=== PATIENT | female | born 1970 | race Caucasian/White ===

== ENCOUNTER → 2016-11-08 | Day surgery (SDC) | payer OTHER ==
[2016-09-07 11:44] VITALS: BMI 35.0
[2016-09-30 11:45] VITALS: BMI 35.0
[2016-10-24 10:38] VITALS: BMI 36.0
[2016-10-31 15:23] VITALS: Ht 154.9 cm; Wt 85.9 kg
[~2016-11-08] VITALS: Ht 154.9 cm; Wt 85.9 kg
[~2016-11-08] MED LIST: ALBUAER2 INH; BUPR-83 PO; BUPR300T43 PO; CINN1CAP2 PO; CYCLOPENTOLATE HCL 1% OP SOLN PER DROP CHARGE OPR SCH; DOXE50CA3 PO; FERR27TA5 PO; GATIFLOXACIN OP SOLN PER DROP CHARGE OPR SCH; HYDR-3126 PO; HYDR50CA2 PO; KETOROLAC 0.5% OP SOLN PER DROP CHARGE OPR SCH; LACTATED RINGER'S 1000ML 500 ML IV SCH; LORA-741 PO; LXP10 PO; MELA1TAB5 PO; MULT-307 PO; OXCA150T2 PO; OXCA300T2 PO; OXCA300T4 PO; PHENYLEPHRINE HCL 2.5% OP SOLN PER DROP CHARGE OPR SCH; PRED1SUS3 OPL; PROPARACAINE 0.5% OP SOLN PER DROP CHARGE OPR SCH; SNQ/25 PO; SULF800T23 PO; TROPICAMIDE 1% OP SOLN PER DROP CHARGE OPR SCH; VNTHFA/IN INH; WLLSR150 PO; ZOLP5TAB PO; ZOLP5TAB6 PO; [UNRECOGNIZED DRUG - OTHER] PO
== END | disposition home or self-care (01) ==
LOC: EDSTATUS 09:30 → C.PAT 10:47
PROVIDERS: ATTEND Ophthalmology
DX: H26.9 Unspecified cataract (principal)

== ENCOUNTER → 2016-11-29 | Day surgery (SDC) | payer OTHER ==
[2016-11-28 15:42] VITALS: Ht 156.2 cm; Wt 90.9 kg
[~2016-11-29] VITALS: Ht 156.2 cm; Wt 90.9 kg
[~2016-11-29] MED LIST changes: +500ML BSS 0.3ML EPI 1:1000PF IRRIG ONE; +ACETAMINOPHEN 325 MG TAB PO PRN; +AMVISC PLUS 0.8ML SYRINGE INT OCU ONE; +BSS FLUSH ONE; -CYCLOPENTOLATE HCL 1% OP SOLN PER DROP CHARGE OPR SCH; +EpINEphrine INJ 1MG/ML AMP 1 MG/ML AMP ONE; -GATIFLOXACIN OP SOLN PER DROP CHARGE OPR SCH; -KETOROLAC 0.5% OP SOLN PER DROP CHARGE OPR SCH; +LIDOCAINE 3.5% OPH GEL PER APPLICATION CHARGE ONE; +LIDOCAINE HCL 1% MPF 2 ML VIAL ONE; +MIDAZOLAM HCL 1 MG/ML 2ML VIAL ONE; +MIX: 4ML BSS 1ML EPI 1:1000 PF INSTIL ONE; +OCUCOAT 1 ML SOLN IO ONE; -PHENYLEPHRINE HCL 2.5% OP SOLN PER DROP CHARGE OPR SCH; +POVIDONE-IODINE OP SOLN 30 ML BTL ONE; +TOBRAMYCIN/DEXAMETHASONE OPH OINT PER APPLN CHARGE ONE; -TROPICAMIDE 1% OP SOLN PER DROP CHARGE OPR SCH
[2016-11-29] MEDS: PHENYLEPHRINE HCL 2.5% OP SOLN PER DROP CHARGE OPR SCH ×2 (07:45→07:55)
[2016-11-29] MEDS: TROPICAMIDE 1% OP SOLN PER DROP CHARGE OPR SCH ×2 (07:47→07:56)
[2016-11-29] MEDS: CYCLOPENTOLATE HCL 1% OP SOLN PER DROP CHARGE OPR SCH ×2 (07:51→07:57)
[2016-11-29] MEDS: KETOROLAC 0.5% OP SOLN PER DROP CHARGE OPR SCH ×2 (07:52→07:58)
--- NOTE | 2016-11-29 07:52 | History & Physical Bridge - SC ---
H&P Re-Evaluation Bridge Note: I have examined the patient, reviewed the History & Physical and in the interval since the performance of the History & Physical I have noted the following changes of clinical significance: Diagnosis: Right Cataract Procedure: Right Cataract Removal with Lens Implant No changes noted
[2016-11-29] MEDS: GATIFLOXACIN OP SOLN PER DROP CHARGE OPR SCH ×2 (07:53→08:03)
--- NOTE | 2016-11-29 08:37 | Discharge Instructions-SurgCtr ---
Discharge Instructions Visit Reason for Visit: Cataract Right Eye Discharge Discharge Diagnosis / Problem: cataract Discharge Goals Goal(s): Improve function Activity Recommendations Activity Limitations: per Instructions/Follow-up section Anesthesia . Post Anesthesia Instructions: If you have had General Anesthesia or IV Sedation: * Do not drive today. * Resume driving when surgeon permits. * Do not make important decisions or sign legal documents today. * Call surgeon for: 1. Temperature elevations greater than 101 degrees F. 2. Uncontrollable pain. 3. Excessive bleeding. 4. Persistent nausea and vomiting. 5. Medication intolerance (nausea, vomiting or rash). * For nausea and vomiting use only clear liquids such as: tea, soda, bouillon until nausea subsides, then gradually increase diet as tolerated. * If you have any concerns or questions, call your surgeon's office. If physician is unavailable and it is an emergency, call 911 or go to the nearest emergency room. . Instructions / Follow-Up Instructions / Follow-Up ACTIVITY RECOMMENDATIONS: * No strenuous lifting, jogging or running for 4 days * No swimming or yard work for 1 week. * Limited bending is permitted, such as putting on shoes. RETURN TO SCHOOL/WORK: No work until seen by physician in office. MEDICATIONS: Resume previous medications unless instructed otherwise by your surgeon. This includes eye drops for glaucoma. Zymaxid/Gatifloxacin (peters cap) - one drop every 2 hours until bedtime Nevanac/Ilevro/Prolensa/Ketorolac (davis cap) - one drop every 4 hours until bedtime Prednisolone (white/pink cap, SHAKE WELL) - one drop every 2 hours until bedtime Starting tomorrow - all 3 drops every 4 hours until seen in the office Optive drops - as needed for discomfort SPECIAL CARE INSTRUCTIONS: * Wear eyeshield when sleeping, for four nights. * You may wear your own glasses or sunglasses while awake. * You may read or watch TV * You may shower and wash your face, but be gentle around the eye and pat dry. * Blurry vision and mild irritation are normal. * Call office if pain is more severe or vision becomes dark at . FOLLOW UP VISIT: Follow-up with Dr Downey tomorrow. Diet Recommendations Home Diet: resume previous diet Procedures Procedures Performed: Right Eye Cataract Phacoemulsification With Intraocular Lens Implant Pending Studies Studies pending at discharge: no Medical Emergencies . Who to Call and When: Medical Emergencies: If at any time you feel your situation is an emergency, please call 911 immediately. . Non-Emergent Contact Non-Emergency issues call your: Collector . . "Provider Documentation" section prepared by Venkata Downey.
[2016-11-29 08:38] VITALS: TEMP 36.8
--- NOTE | 2016-11-29 08:38 | [facility] Operative Report ---
Operative Report 1. PREOPERATIVE DIAGNOSIS: Cataract of the right eye. 2. POSTOPERATIVE DIAGNOSIS: Same. 3. PROCEDURE: Phacoemulsification with intraocular lens implantation of the right eye. SURGEON: Dr. Venkata Downey. ANESTHESIA: Topical Lidocaine gel, 1% Non- Preserved intracameral Lidocaine, and monitored intravenous sedation. INDICATIONS FOR THE PROCEDURE: The patient is a 46 - year-old female with a history of cataract of the right eye causing significant visual impairment. The details of the proposed procedure were explained to the patient who asked appropriate questions and following discussion of all risks, benefits and alternatives agreed to have the procedure done. 4. OPERATION AND FINDINGS: DESCRIPTION OF PROCEDURE: After informed consent was obtained, the patient was brought to the Operating Room at the [facility]. The patient was placed in a supine position and then the right eye was prepped and draped in the usual sterile fashion for intraocular surgery. A drop of topical Lidocaine gel was placed in the operative eye. A wire lid speculum was then placed in the fornices. A corneal paracentesis was then created temporally. The Non-Preserved Lidocaine was then instilled into the anterior chamber. The anterior chamber was then pressurized with viscoelastic. A 2.0 mm clear corneal incision was then created temporally. A cystotome was inserted into the anterior chamber and used to create a tear in the anterior lens capsule. This capsular tear was then used to create a small flap and the flap was dragged in a counterclockwise direction in order to create a continuous curvilinear capsulorrhexis. Hydrodissection was accomplished with balanced salt solution. Phacoemulsification of the lens nucleus was then performed in a standard [id number] technique. The phaco time was 8 seconds with an average power of 4 %. The remaining cortical material was removed using irrigation aspiration. The capsular bag was then filled with viscoelastic. A Bausch & Lomb MI60L +21.0 diopters lens was then loaded into the injector and injected into the capsular bag. The remaining viscoelastic was removed with the irrigation aspiration handpiece. The wound was hydrated and then checked and found to be watertight. The intraocular pressure was checked and found to be adequate. The wire lid speculum was removed and the patient's face was cleaned and dried. TobraDex ointment was placed in the inferior fornix. The patient was discharged to the Recovery Room having tolerated the procedure well. There were no complications. The patient will be seen tomorrow in the office for follow-up. I attest to the content of the Intraoperative Record and any orders documented therein. Any exceptions are noted below.
--- NOTE | 2016-11-29 08:57 | Anesthesia Progress Nt - [facility] ---
Anesthesia Post Op Note Date & Time Nov 29, 2016 at 08:57 Vital Signs Pain Intensity: 0 Vital Signs Past 12 Hours Date Time Temp Pulse Resp B/P Pulse Ox O2 Delivery O2 Flow Rate FiO2 11/29/16 08:38 36.8 80 16 124/87 99 Room Air 11/29/16 07:33 37.0 80 16 154/106 98 Room Air Notes Mental Status: alert / awake / arousable, participated in evaluation Pt Amnestic to Procedure: No Nausea / Vomiting: adequately controlled Pain: adequately controlled Airway Patency, RR, SpO2: stable & adequate BP & HR: stable & adequate Hydration State: stable & adequate Anesthetic Complications: no major complications apparent Pt doing very well. Some recall as expected and explained.
[2016-11-29 09:01] VITALS: BP 123/85; PULSE 88; O2SAT 97
== END | disposition home or self-care (01) ==
LOC: X.SURG 07:13
PROVIDERS: ATTEND Ophthalmology
DX: H26.9 Unspecified cataract (principal); M25.559 Pain in unspecified hip; Z01.818 Encounter for other preprocedural examination; G89.29 Other chronic pain; M54.2 Cervicalgia

== ENCOUNTER → 2017-01-17 | Day surgery (SDC) | payer OTHER ==
[2016-09-30 11:49] VITALS: BMI 35.0
[2016-10-24 14:06] VITALS: BMI 36.0
[2016-12-19 14:11] VITALS: Ht 156.2 cm; Wt 90.9 kg
[~2017-01-17] VITALS: Ht 156.2 cm; Wt 90.9 kg
[~2017-01-17] MED LIST changes: +CYCLOPENTOLATE HCL 1% OP SOLN PER DROP CHARGE OPL SCH; +ETOD300C20 PO; +GATIFLOXACIN OP SOLN PER DROP CHARGE OPL SCH; +KETOROLAC 0.5% OP SOLN PER DROP CHARGE OPL SCH; +MECL1TAB42 PO; -MIX: 4ML BSS 1ML EPI 1:1000 PF INSTIL ONE; +PHENYLEPHRINE HCL 2.5% OP SOLN PER DROP CHARGE OPL SCH; -PRED1SUS3 OPL; +PROPARACAINE 0.5% OP SOLN PER DROP CHARGE OPL SCH; -PROPARACAINE 0.5% OP SOLN PER DROP CHARGE OPR SCH; +TROPICAMIDE 1% OP SOLN PER DROP CHARGE OPL SCH
[2017-01-17] MEDS: PHENYLEPHRINE HCL 2.5% OP SOLN PER DROP CHARGE OPL SCH ×2 (10:26→10:31)
[2017-01-17] MEDS: TROPICAMIDE 1% OP SOLN PER DROP CHARGE OPL SCH ×2 (10:27→10:32)
--- NOTE | 2017-01-17 10:27 | History & Physical Bridge - [place] ---
H&P Re-Evaluation Bridge Note: I have examined the patient, reviewed the History & Physical and in the interval since the performance of the History & Physical I have noted the following changes of clinical significance: No changes noted
[2017-01-17] MEDS: CYCLOPENTOLATE HCL 1% OP SOLN PER DROP CHARGE OPL SCH ×2 (10:28→10:33)
[2017-01-17] MEDS: KETOROLAC 0.5% OP SOLN PER DROP CHARGE OPL SCH ×2 (10:29→10:34)
[2017-01-17] MEDS: GATIFLOXACIN OP SOLN PER DROP CHARGE OPL SCH ×2 (10:30→10:40)
--- NOTE | 2017-01-17 10:44 | Discharge Instructions-SurgCtr ---
Discharge Instructions Date of Service Jan 17, 2017. Visit Reason for Visit: Cataract Left Eye Discharge Discharge Diagnosis / Problem: cataract Discharge Goals Goal(s): Improve function Activity Recommendations Activity Limitations: per Instructions/Follow-up section Anesthesia . Post Anesthesia Instructions: If you have had General Anesthesia or IV Sedation: * Do not drive today. * Resume driving when surgeon permits. * Do not make important decisions or sign legal documents today. * Call surgeon for: 1. Temperature elevations greater than 101 degrees F. 2. Uncontrollable pain. 3. Excessive bleeding. 4. Persistent nausea and vomiting. 5. Medication intolerance (nausea, vomiting or rash). * For nausea and vomiting use only clear liquids such as: tea, soda, bouillon until nausea subsides, then gradually increase diet as tolerated. * If you have any concerns or questions, call your surgeon's office. If physician is unavailable and it is an emergency, call 911 or go to the nearest emergency room. . Instructions / Follow-Up Instructions / Follow-Up ACTIVITY RECOMMENDATIONS: * No strenuous lifting, jogging or running for 4 days * No swimming or yard work for 1 week. * Limited bending is permitted, such as putting on shoes. RETURN TO SCHOOL/WORK: No work until seen by physician in office. MEDICATIONS: Resume previous medications unless instructed otherwise by your surgeon. This includes eye drops for glaucoma. Zymaxid/Gatifloxacin (peters cap) - one drop every 2 hours until bedtime Nevanac/Ilevro/Prolensa/Ketorolac (davis cap) - one drop every 4 hours until bedtime Prednisolone (white/pink cap, SHAKE WELL) - one drop every 2 hours until bedtime Starting tomorrow - all 3 drops every 4 hours until seen in the office Optive drops - as needed for discomfort SPECIAL CARE INSTRUCTIONS: * Wear eyeshield when sleeping, for four nights. * You may wear your own glasses or sunglasses while awake. * You may read or watch TV * You may shower and wash your face, but be gentle around the eye and pat dry. * Blurry vision and mild irritation are normal. * Call office if pain is more severe or vision becomes dark at . FOLLOW UP VISIT: Follow-up with Dr Downey tomorrow. Diet Recommendations Home Diet: resume previous diet Pending Studies Studies pending at discharge: no Medical Emergencies . Who to Call and When: Medical Emergencies: If at any time you feel your situation is an emergency, please call 911 immediately. . Non-Emergent Contact Non-Emergency issues call your: Health Spa Manager . . "Provider Documentation" section prepared by Venkata Downey.
--- NOTE | 2017-01-17 10:46 | [facility] Operative Report ---
Operative Report Date of Service Jan 17, 2017. Operative Report 1. PREOPERATIVE DIAGNOSIS: Cataract of the right eye. 2. POSTOPERATIVE DIAGNOSIS: Same. 3. PROCEDURE: Phacoemulsification with intraocular lens implantation of the right eye. SURGEON: Dr. Venkata Downey. ANESTHESIA: Topical Lidocaine gel, 1% Non- Preserved intracameral Lidocaine, and monitored intravenous sedation. INDICATIONS FOR THE PROCEDURE: The patient is a 46 - year-old female with a history of cataract of the right eye causing significant visual impairment. The details of the proposed procedure were explained to the patient who asked appropriate questions and following discussion of all risks, benefits and alternatives agreed to have the procedure done. Patient had a poorly dilating pupil and therefore plans were made preoperatively to stretch the pupil. 4. OPERATION AND FINDINGS: DESCRIPTION OF PROCEDURE: After informed consent was obtained, the patient was brought to the Operating Room at the [facility]. The patient was placed in a supine position and then the right eye was prepped and draped in the usual sterile fashion for intraocular surgery. A drop of topical Lidocaine gel was placed in the operative eye. A wire lid speculum was then placed in the fornices. A corneal paracentesis was then created temporally. The Non-Preserved Lidocaine was then instilled into the anterior chamber. The anterior chamber was then pressurized with viscoelastic. A 2.0 mm clear corneal incision was then created temporally. Kuglen hooks were used to stretch the pupil horizontally and vertically. A cystotome was inserted into the anterior chamber and used to create a tear in the anterior lens capsule. This capsular tear was then used to create a small flap and the flap was dragged in a counterclockwise direction in order to create a continuous curvilinear capsulorrhexis. Hydrodissection was accomplished with balanced salt solution. Phacoemulsification of the lens nucleus was then performed in a standard pdnvci-[id number]-smbaqpe technique. The phaco time was 29 seconds with an average power of 13 %. The remaining cortical material was removed using irrigation aspiration. The capsular bag was then filled with viscoelastic. A Bausch & Lomb MI60L +23.0 diopters lens was then loaded into the injector and injected into the capsular bag. The remaining viscoelastic was removed with the irrigation aspiration handpiece. The wound was hydrated and then checked and found to be watertight. The intraocular pressure was checked and found to be adequate. The wire lid speculum was removed and the patient's face was cleaned and dried. TobraDex ointment was placed in the inferior fornix. The patient was discharged to the Recovery Room having tolerated the procedure well. There were no complications. The patient will be seen tomorrow in the office for follow-up. I attest to the content of the Intraoperative Record and any orders documented therein. Any exceptions are noted below.
[2017-01-17 11:10] VITALS: TEMP 36.3
--- NOTE | 2017-01-17 11:25 | Anesthesia Progress Nt - [facility] ---
Anesthesia Post Op Note Date & Time Jan 17, 2017 at 11:25 Vital Signs Pain Intensity: 0 Vital Signs Past 12 Hours Date Time Temp Pulse Resp B/P Pulse Ox O2 Delivery O2 Flow Rate FiO2 01/17/17 11:10 36.3 84 16 123/85 97 Room Air 01/17/17 10:39 36.9 89 16 137/86 96 Room Air Notes Mental Status: alert / awake / arousable, participated in evaluation Pt Amnestic to Procedure: No Nausea / Vomiting: adequately controlled Pain: adequately controlled Airway Patency, RR, SpO2: stable & adequate BP & HR: stable & adequate Hydration State: stable & adequate Anesthetic Complications: no major complications apparent Pt doing well. Recall as expected.
[2017-01-17 11:30] VITALS: BP 114/78; PULSE 85; O2SAT 98
== END | disposition home or self-care (01) ==
LOC: X.SURG 10:21
PROVIDERS: ATTEND Ophthalmology
DX: H26.9 Unspecified cataract (principal)

== ENCOUNTER 2017-02-25 20:34 | Emergency (ER) | payer OTHER ==
[~2017-02-25] VITALS: Ht 154.9 cm; Wt 91.0 kg
[~2017-02-25 20:34] MED LIST changes: -500ML BSS 0.3ML EPI 1:1000PF IRRIG ONE; -ACETAMINOPHEN 325 MG TAB PO PRN; -AMVISC PLUS 0.8ML SYRINGE INT OCU ONE; -BSS FLUSH ONE; -CYCLOPENTOLATE HCL 1% OP SOLN PER DROP CHARGE OPL SCH; -ETOD300C20 PO; -EpINEphrine INJ 1MG/ML AMP 1 MG/ML AMP ONE; -GATIFLOXACIN OP SOLN PER DROP CHARGE OPL SCH; -HYDR50CA2 PO; -KETOROLAC 0.5% OP SOLN PER DROP CHARGE OPL SCH; -LACTATED RINGER'S 1000ML 500 ML IV SCH; -LIDOCAINE 3.5% OPH GEL PER APPLICATION CHARGE ONE; -LIDOCAINE HCL 1% MPF 2 ML VIAL ONE; -LORA-741 PO; -LXP10 PO; -MECL1TAB42 PO; -MELA1TAB5 PO; -MIDAZOLAM HCL 1 MG/ML 2ML VIAL ONE; -MULT-307 PO; -OCUCOAT 1 ML SOLN IO ONE; -OXCA300T2 PO; -OXCA300T4 PO; -PHENYLEPHRINE HCL 2.5% OP SOLN PER DROP CHARGE OPL SCH; -POVIDONE-IODINE OP SOLN 30 ML BTL ONE; -PROPARACAINE 0.5% OP SOLN PER DROP CHARGE OPL SCH; -SNQ/25 PO; -SULF800T23 PO; -TOBRAMYCIN/DEXAMETHASONE OPH OINT PER APPLN CHARGE ONE; -TROPICAMIDE 1% OP SOLN PER DROP CHARGE OPL SCH; -VNTHFA/IN INH; -WLLSR150 PO; -ZOLP5TAB6 PO
[2017-02-25 20:36] VITALS: TEMP 36.9; Ht 154.9 cm; Wt 91.0 kg
[2017-02-25 20:47] VITALS: O2SAT 100
[2017-02-25] MEDS ORDERED: LORAZEPAM 2 MG/ML 1 ML VIAL IV STA (20:49)
[2017-02-25] MEDS ORDERED: SODIUM CHLORIDE 0.9% 1000ML 1,000 ML IV STA (20:50)
--- NOTE | 2017-02-25 20:55 | EMERGENCY ROOM VISIT NOTE ---
History Report prepared by Ralf: Brian Davies Under the Supervision of: Dr. Bill Schmidt M.D. First contact with patient: 20:41 Chief Complaint: OTHER COMPLAINT Stated Complaint: UNABLE TO FEEL ANYTHING, DIFFICULTY BREATHING History of Present Illness The patient is a 46 year old female who presents to the Emergency Room with complaints of persistent difficulty breathing that started prior to arrival. The patient woke up and felt like her chest was tight and she couldn't catch her breath. The patient also complains of feeling like her heart was beating too fast and her hands feeling clammy and cold. Source of History: patient Onset: prior to arrival Position: other (global) Timing: other (persistent) Note: Other associated symptoms: chest tightness, difficulty catching breath, heart beating too fast, hands feeling cold and clammy Review of Systems See HPI for pertinent positives & negatives. A total of 10 systems reviewed and were otherwise negative. Past Medical & Surgical Medical Problems: (1) Bipolar disorder (2) Pneumonia (3) S/P hernia repair (4) Tobacco Use Disorder (5) Urinary tract infection Family History Diabetes mellitus FH: cancer Social History Smoking Status: Former Smoker Alcohol Use: occasionally Drug Use: none Marital Status: in relationship Housing Status: lives with significant other Occupation Status: unemployed Current/Historical Medications Scheduled Bupropion (Wellbutrin), 100 MG PO QPM AT 1500 Bupropion Hcl (Bupropion Hcl Xl), 1 TAB PO QAM Doxepin (Sinequan), 25 MG PO HS Ferrous Gluconate (Iron), 1 TAB PO QPM Hydroxyzine Hcl (Atarax), 100 MG PO HS Lorazepam (Ativan), 0.5 MG PO Q6H Melatonin (Kp Melatonin), 6 MG PO HS Multiple Vitamins W/ Minerals (One Daily Complete), 1 TAB PO DAILY Oxcarbazepine (Trileptal), 300 MG PO QAM Oxcarbazepine (Trileptal), 600 MG PO DAILY AT 2400 Zolpidem Tartrate (Zolpidem Tartrate), 2.5 MG PO HS Scheduled PRN Albuterol Hfa (Ventolin Hfa), 2 PUFFS INH QID PRN for Shortness of Breath Allergies Coded Allergies: Iodine (Verified Allergy, Severe, "ALL MOST KILLED ME"., 02/25/17) Shellfish (Verified Allergy, Severe, "ALL MOST KILLED ME"., 02/25/17) Cephalosporins (Verified Allergy, Intermediate, HIVES TO KEFLEX, 02/25/17) Physical Exam Vital Signs Date Time Temp Pulse Resp B/P Pulse Ox O2 Delivery O2 Flow Rate FiO2 02/25/17 22:54 87 20 128/81 98 02/25/17 21:20 88 20 155/122 99 Room Air 02/25/17 20:56 86 02/25/17 20:47 100 Nasal Cannula 2.0 02/25/17 20:47 100 Nasal Cannula 2.0 02/25/17 20:36 36.9 68 24 166/84 96 Room Air Physical Exam GENERAL: Patient is a actively hyper-ventilating. HEAD: Normocephalic atraumatic EYES: Ocular movements intact pupils equal and react to light OROPHARYNX mucous membranes are moist no exudates present no erythema or edema present NECK: Supple no nuchal rigidity CHEST: Good equal expansion LUNGS: Clear and equal to auscultation CARDIAC: Normal S1 and S2 ABDOMEN: Soft nontender no guarding BACK: No CVA tenderness EXTREMITIES: No pain upon palpation normal muscle strength in all groups no clubbing cyanosis or edema NEURO: Patient is following commands is answering questions appropriately. Alert and oriented x3 Cranial Nerves 2-12 grossly intact Medical Decision & Procedures Laboratory Results 02/25/17 21:00 Red Blood Count 4.23, Mean Corpuscular Volume 87.2, Mean Corpuscular Hemoglobin 29.6, Mean Corpuscular Hemoglobin Concent 33.9, Mean Platelet Volume 9.3, Neutrophils (%) (Auto) 47.6, Lymphocytes (%) (Auto) 40.4, Monocytes (%) (Auto) 7.7, Eosinophils (%) (Auto) 3.9, Basophils (%) (Auto) 0.3, Neutrophils # (Auto) 3.25, Lymphocytes # (Auto) 2.76, Monocytes # (Auto) 0.53, Eosinophils # (Auto) 0.27, Basophils # (Auto) 0.02 02/25/17 21:00 Test 02/25/17 21:00 02/25/17 21:12 02/25/17 21:25 White Blood Count 6.84 K/uL (4.8-10.8) Red Blood Count 4.23 M/uL (4.2-5.4) Hemoglobin 12.5 g/dL (12.0-16.0) Hematocrit 36.9 % (37-47) Mean Corpuscular Volume 87.2 fL (80-100) Mean Corpuscular Hemoglobin 29.6 pg (25-34) Mean Corpuscular Hemoglobin Concent 33.9 g/dl (32-36) Platelet Count 259 K/uL (130-400) Mean Platelet Volume 9.3 fL (7.4-10.4) Neutrophils (%) (Auto) 47.6 % Lymphocytes (%) (Auto) 40.4 % Monocytes (%) (Auto) 7.7 % Eosinophils (%) (Auto) 3.9 % Basophils (%) (Auto) 0.3 % Neutrophils # (Auto) 3.25 K/uL (1.4-6.5) Lymphocytes # (Auto) 2.76 K/uL (1.2-3.4) Monocytes # (Auto) 0.53 K/uL (0.11-0.59) Eosinophils # (Auto) 0.27 K/uL (0-0.5) Basophils # (Auto) 0.02 K/uL (0-0.2) RDW Standard Deviation 39.7 fL (36.4-46.3) RDW Coefficient of Variation 12.4 % (11.5-14.5) Immature Granulocyte % (Auto) 0.1 % Immature Granulocyte # (Auto) 0.01 K/uL (0.00-0.02) Anion Gap 9.0 mmol/L (3-11) Est Creatinine Clear Calc Drug Dose 79.3 ml/min Estimated GFR () 87.2 Estimated GFR (Non- 75.2 BUN/Creatinine Ratio 14.9 (10-20) Calcium Level 9.0 mg/dl (8.5-10.1) Total Bilirubin 0.3 mg/dl (0.2-1) Direct Bilirubin < 0.1 mg/dl (0-0.2) Aspartate Amino Transf (AST/SGOT) 33 U/L (15-37) Alanine Aminotransferase (ALT/SGPT) 39 U/L (12-78) Alkaline Phosphatase 88 U/L (45-117) Total Protein 7.0 gm/dl (6.4-8.2) Albumin 3.8 gm/dl (3.4-5.0) Thyroid Stimulating Hormone (TSH) 2.040 uIu/ml (0.300-4.500) Bedside Glucose 96 mg/dl (70-90) Urine Color YELLOW Urine Appearance CLEAR (CLEAR) Urine pH 7.0 (4.5-7.5) Urine Specific [place] 1.016 (1.000-1.030) Urine Protein NEG (NEG) Urine Glucose (UA) NEG (NEG) Urine Ketones NEG (NEG) Urine Occult Blood NEG (NEG) Urine Nitrite NEG (NEG) Urine Bilirubin NEG (NEG) Urine Urobilinogen NEG (NEG) Urine Leukocyte Esterase TRACE (NEG) Urine WBC (Auto) 5-10 /hpf (0-5) Urine RBC (Auto) 0-4 /hpf (0-4) Urine Hyaline Casts (Auto) 0 /lpf (0-5) Urine Epithelial Cells (Auto) >30 /lpf (0-5) Urine Bacteria (Auto) NEG (NEG) Labs reviewed by ED physician. Medications Administered Medications (Trade) Dose Ordered Sig/Nicolasa Route Start Time Stop Time Status Last Admin Dose Admin Lorazepam 1 mg 1 mg NOW STAT IV 02/25/17 20:49 02/25/17 20:50 DC 02/25/17 21:13 1 MG Sodium Chloride (Nss 1000ml) 1,000 ml @ 999 mls/hr Q1H1M STAT IV 02/25/17 20:50 02/25/17 21:50 DC 02/25/17 21:13 999 MLS/HR Lorazepam (Ativan 1MG Home Pack) 1 homepack UD ONCE PO 02/25/17 22:15 02/25/17 22:16 DC 02/25/17 22:15 1 HOMEPACK ED Course 2043: Past medical records reviewed. The patient was evaluated in room C3. A complete history and physical examination was performed. 2048: Ordered Ativan Inj 1 mg IV, NSS 1000 ml @ 999 mls/hr IV. 2200: At this time, I reevaluated the patient and she was sleeping. When I woke her up, she was still hyperventilating a little, but was starting to feel better. 2214: Ordered Lorazepam 1 homepack PO. 6: Upon reexamination the patient is resting comfortably. I discussed results and treatment plan with the patient. She verbalizes agreement and understanding. The patient is ready for discharge. Medical Decision Differential diagnosis: Etiologies such as infections, reactive airway disease, pneumonia, pneumothorax , COPD, CHF, cardiac ischemia, pulmonary embolism, musculoskeletal, gastrointestinal, as well as others were entertained. This is a 46-year-old female who presents emergency department complaining of multiple complaints. The patient is actively hyperventilating and speaking approximately 200 words per minute. She is complaining of bilateral numbness and saline to her hands and feet. For this reason the patient was given Ativan in the emergency department. Repeat examination revealed much improvement patient's symptoms. The patient woke up from a bad dream and has been hyperventilating ever since. I recommended that the patient follow-up with her therapist. I had case management also come in and see the patient to get her in with her therapist. I will put her on a short supply of Ativan. Patient was in agreement with the treatment plan. Impression Primary Impression: Hyperventilation Scribe Attestation The scribe's documentation has been prepared under my direction and personally reviewed by me in its entirety. I confirm that the note above accurately reflects all work, treatment, procedures, and medical decision making performed by me. Departure Information Dispostion Home / Self-Care Prescriptions Lorazepam (ATIVAN) 0.5 Mg Tab 0.5 MG PO Q6H, #6 TAB Prov: Bill Schmidt MD 02/25/17 Referrals Asia Roger D.O. (PCP) Forms HOME CARE DOCUMENTATION FORM, IMPORTANT VISIT INFORMATION, WORK / SCHOOL INSTRUCTIONS Patient Instructions ED Hyperventilation Syndrome, My [facility] Additional Instructions Follow up with DR Aaron You received narcotic or benzodiazepene medication while in the emergency room today. Do not drive, operate heavy machinery, or drink alcohol under the influence of this medication. You have been examined and treated today on an emergency basis only. This is not a substitute for, or an effort to provide, complete comprehensive medical care. It is impossible to recognize and treat all injuries or illnesses in a single emergency department visit. It is therefore important that you follow up closely with Dr Roger. Call as soon as possible for an appointment. Thank you for your time and consideration. I look forward to speaking with you again soon. Please don't hesitate to call us if you have any questions.
[2017-02-25 21:09] LABS: BASO % 0.3 %; BASO ABS # 0.02 K/uL (0-0.2); COMPLETE YES; EOS % 3.9 %; HEMATOCRIT 36.9 % (37-47); IG% 0.1 %; LYMPH % 40.4 %; LYMPH ABS # 2.76 K/uL (1.2-3.4); MEAN CELL VOLUME 87.2 fL (80-100); MEAN CORPUSCULAR HEMOGLOBIN 29.6 pg (25-34); MEAN CORPUSCULAR HGB CONC 33.9 g/dl (32-36); MEAN PLATELET VOLUME 9.3 fL (7.4-10.4); MONO % 7.7 %; NEUT % 47.6 %; PLATELET COUNT 259 K/uL (130-400); RED BLOOD COUNT 4.23 M/uL (4.2-5.4); WHITE BLOOD COUNT 6.84 K/uL (4.8-10.8)
[2017-02-25] MEDS ORDERED: ZOLP5TAB6 PO (21:13)
[2017-02-25] MEDS ORDERED: SNQ/25 PO (21:13)
[2017-02-25] MEDS ORDERED: MELA1TAB5 PO (21:13)
[2017-02-25] MEDS ORDERED: MULT-307 PO (21:13)
[2017-02-25] MEDS ORDERED: VNTHFA/IN INH (21:13)
[2017-02-25] MEDS ORDERED: OXCA300T4 PO (21:13)
[2017-02-25] MEDS ORDERED: OXCA300T2 PO (21:13)
[2017-02-25 21:25] LABS: ALT/SGPT 39 U/L (12-78); BLOOD UREA NITROGEN 14 mg/dl (7-18); BUN/CREATININE RATIO 14.9 (10-20); CARBON DIOXIDE 25 mmol/L (21-32); CHLORIDE 105 mmol/L (98-107); CREATININE 0.92 mg/dl (0.60-1.20); GLUCOSE 116 mg/dl (70-99); POTASSIUM 3.8 mmol/L (3.5-5.1); SODIUM 139 mmol/L (136-145)
[2017-02-25 21:35] LABS: URINE APPEARANCE CLEAR (CLEAR); URINE BILIRUBIN NEG (NEG); URINE COLOR YELLOW; URINE EPITHELIAL CELL AUTO >30 /lpf (0-5); URINE NITRITE NEG (NEG); URINE SPECIFIC GRAVITY 1.016 (1.000-1.030); UROBILINOGEN NEG (NEG)
[2017-02-25 21:36] LABS: MANUAL MICROSCOPIC REQUIRED? NO; REVIEW REQ? NO
[2017-02-25 21:36] LABS: ALKALINE PHOSPHATASE 88 U/L (45-117); AST/SGOT 33 U/L (15-37)
[2017-02-25] MEDS ORDERED: LORA-741 PO (22:08)
[2017-02-25] MEDS ORDERED: ATIVAN 1MG HOMEPACK PO ONE (22:15)
[2017-02-25 22:54] VITALS: BP 128/81; PULSE 87; O2SAT 98
== END 2017-02-25 22:55 | disposition home or self-care (01) ==
LOC: C.EDB 20:36 → C.EDC 22:55
DX: R06.4 Hyperventilation (principal); R20.0 Anesthesia of skin; Z87.01 Personal history of pneumonia (recurrent); Z87.440 Personal history of urinary (tract) infections; Z87.891 Personal history of nicotine dependence; Z98.890 Other specified postprocedural states; Z83.3 Family history of diabetes mellitus

== ENCOUNTER 2017-06-05 00:13 | Emergency (ER) | payer OTHER ==
[~2017-06-05] VITALS: Ht 154.9 cm; Wt 95.8 kg
[~2017-06-05 00:13] MED LIST changes: -ALBUAER2 INH; -CINN1CAP2 PO; -DOXE50CA3 PO; +MELA1TAB5 PO; +MULT-307 PO; -OXCA150T2 PO; +OXCA300T2 PO; +OXCA300T4 PO; +SNQ/25 PO; +VNTHFA/IN INH; -ZOLP5TAB PO; +ZOLP5TAB6 PO; -[UNRECOGNIZED DRUG - OTHER] PO
[2017-06-05 00:23] VITALS: TEMP 36.8; Ht 154.9 cm; Wt 95.8 kg
[2017-06-05 00:50] LABS: URINE APPEARANCE CLEAR (CLEAR); URINE BILIRUBIN NEG (NEG); URINE COLOR DK YELLOW; URINE EPITHELIAL CELL AUTO >30 /lpf (0-5); URINE NITRITE NEG (NEG); URINE PH 5.5 (4.5-7.5); URINE SPECIFIC GRAVITY 1.028 (1.000-1.030); UROBILINOGEN NEG (NEG); ZZUR CULT IF INDIC CLEAN CATCH NO
[2017-06-05 00:55] LABS: MANUAL MICROSCOPIC REQUIRED? NO; REVIEW REQ? NO
[2017-06-05] MEDS ORDERED: SULF800T23 PO (01:11)
[2017-06-05] MEDS ORDERED: LXP10 PO (01:14)
[2017-06-05] MEDS ORDERED: HYDR50CA2 PO (01:14)
[2017-06-05] MEDS ORDERED: PHENAZOPYRIDINE HOME PACK 200 MG VIAL PO ONE (01:15)
[2017-06-05] MEDS ORDERED: WLLSR150 PO (01:15)
[2017-06-05] MEDS ORDERED: SEPTRA DS HOME PACK 1 EA VIAL PO ONE (01:15)
[2017-06-05 01:22] VITALS: BP 155/115; PULSE 92; O2SAT 99
--- NOTE | 2017-06-05 02:14 | EMERGENCY ROOM VISIT NOTE ---
ED Visit Note First contact with patient: 00:27 CHIEF COMPLAINT: Frequent and painful urination HISTORY OF PRESENT ILLNESS: This 46-year-old female presents to the emergency department complaining of increased frequency of urination, burning pain with urination, and a feeling of incomplete voiding over the past 2 days. The patient states that she recently started a new job, and she has not been drinking as much water as normal. She feels a little dehydrated and feels that her urine is concentrated. The patient passes very small volumes of urine with each episode of voiding. The patient does is with suprapubic abdominal pain. They deny back pain, fever, or vaginal discharge. The patient has had frequent urinary tract infections in the past. Patient feels they are at risk for STIs. REVIEW OF SYSTEMS: A 6 system review of systems was completed with positives and pertinent negatives listed in the HPI. ALLERGIES: See EMR MEDICATIONS: See EMR PMH: No pertinent chronic medical disease SOCIAL HISTORY: Employed and lives locally PHYSICAL EXAM: Vital Signs: Reviewed Nurse's notes, vital signs stable. GENERAL : White female, in no acute distress, they do not appear toxic, well-developed, well-nourished. ABDOMEN: Positive bowel sounds x 4. The abdomen is soft, mildly tender in the suprapubic area, but no masses or organs are felt. There is no CVA tenderness. The skin is clear. NEURO: Alert and oriented to person place and time. EMERGENCY DEPARTMENT COURSE: I examined the patient. The urine dip showed signs of a UTI. She will be started on Bactrim and Pyridium The urine was sent for culture and sensitivity. The patient was discharged home in good condition. Problem List Medical Problems: (1) Bipolar disorder Status: Chronic (2) Pneumonia Status: Resolved (3) S/P hernia repair Status: Resolved (4) Urinary tract infection Status: Resolved Current/Historical Medications Scheduled Bupropion HCl (Bupropion HCl Sr), 150 MG PO QAM Doxepin (Sinequan), 25 MG PO HS Escitalopram Oxalate (Escitalopram Oxalate), 10 MG PO DAILY Hydroxyzine Pamoate (Vistaril), 100 MG PO HS Multiple Vitamins W/ Minerals (One Daily Complete), 1 TAB PO DAILY Oxcarbazepine (Trileptal), 300 MG PO QAM Oxcarbazepine (Trileptal), 600 MG PO DAILY AT 2400 Sulfa/Trimethoprim (Bactrim Ds 800MG/160MG), 1 TAB PO BID Zolpidem Tartrate (Zolpidem Tartrate), 2.5 MG PO HS Allergies Coded Allergies: Iodine (Verified Allergy, Severe, "ALL MOST KILLED ME"., 06/05/17) Shellfish (Verified Allergy, Severe, "ALL MOST KILLED ME"., 06/05/17) Cephalosporins (Verified Allergy, Intermediate, HIVES TO KEFLEX, 06/05/17) Vital Signs Date Time Temp Pulse Resp B/P (MAP) Pulse Ox O2 Delivery O2 Flow Rate FiO2 06/05/17 01:22 92 20 155/115 99 06/05/17 00:23 36.8 89 20 179/99 98 Room Air Laboratory Results Test 06/05/17 00:35 Urine Color DK YELLOW Urine Appearance CLEAR (CLEAR) Urine pH 5.5 (4.5-7.5) Urine Specific [place] 1.028 (1.000-1.030) Urine Protein 1+ (NEG) Urine Glucose (UA) NEG (NEG) Urine Ketones TRACE (NEG) Urine Occult Blood 3+ (NEG) Urine Nitrite NEG (NEG) Urine Bilirubin NEG (NEG) Urine Urobilinogen NEG (NEG) Urine Leukocyte Esterase SMALL (NEG) Urine WBC (Auto) 5-10 /hpf (0-5) Urine RBC (Auto) >30 /hpf (0-4) Urine Hyaline Casts (Auto) 1-5 /lpf (0-5) Urine Epithelial Cells (Auto) >30 /lpf (0-5) Urine Bacteria (Auto) NEG (NEG) Urine Test NEG (NEG) Medications Administered Medications (Trade) Dose Ordered Sig/Nicolasa Route Start Time Stop Time Status Last Admin Dose Admin Trimethoprim/ Sulfamethoxazole (Sulfameth/ Trimeth Ds 800/ 160MG Home Pack) 1 homepack UD ONCE PO 06/05/17 01:15 06/05/17 01:16 DC 06/05/17 01:18 1 HOMEPACK Phenazopyridine HCl (Phenazopyridine HCl 200MG Home Pack) 1 homepack UD ONCE PO 06/05/17 01:15 06/05/17 01:16 DC 06/05/17 01:18 1 HOMEPACK Departure Information Impression Primary Impression: Urinary tract infection Dispostion Home / Self-Care Condition GOOD Prescriptions Sulfa/Trimethoprim (Bactrim Ds 800MG/160MG) Tab 1 TAB PO BID for 9 Days, #18 TAB Prov: Mario Henry PA-C 06/05/17 Referrals Asia Roger D.O. (PCP) Forms HOME CARE DOCUMENTATION FORM, IMPORTANT VISIT INFORMATION Patient Instructions My [facility] Additional Instructions You were seen and evaluated today on an emergency basis only. This is not a substitute for, or an effort to provide, complete comprehensive medical care. It is not possible to recognize and treat all injuries or illnesses in a single emergency department visit. For this reason it is recommended that you followup with our primary care physician this week for ongoing care and evaluation. Trimethoprim-Sulfamethoxazole(Bactrim DS): Take one pill twice daily for 10 days for your urine infection. All antibiotics can cause diarrhea. If this occurs and you feel worse or it does not resolve in 1-2 days follow up with your doctor or return to the Emergency Department as this could be signs of serious underlying problems. Any medication can cause an allergic reaction, stop the pills immediately and return to the ER for rash, hives, breathing difficulties, or swelling. Take Pyridium 200 mg 3 times daily. This medication will help with your pain. It will turn your urine to an orange/red color. This is normal. You are welcome to return to the emergency department anytime with new, worsening, or concerning symptoms.
== END 2017-06-05 01:23 | disposition home or self-care (01) ==
LOC: C.EDB 00:15 → C.EDC 01:23
DX: N39.0 Urinary tract infection, site not specified (principal); F31.9 Bipolar disorder, unspecified; Z87.440 Personal history of urinary (tract) infections; Z87.01 Personal history of pneumonia (recurrent); Z79.899 Other long term (current) drug therapy

== ENCOUNTER 2017-08-29 12:46 | Emergency (ER) | payer OTHER ==
[~2017-08-29] VITALS: Ht 152.4 cm; Wt 95.0 kg
[~2017-08-29 12:46] MED LIST changes: -BUPR-83 PO; -BUPR300T43 PO; -FERR27TA5 PO; -HYDR-3126 PO; +HYDR50CA2 PO; +LXP10 PO; -MELA1TAB5 PO; -VNTHFA/IN INH; +WLLSR150 PO
[2017-08-29 12:50] VITALS: TEMP 37; Ht 152.4 cm; Wt 95.0 kg
[2017-08-29] MEDS ORDERED: SODIUM CHLORIDE 0.9% 1000ML 1,000 ML IV STA (13:20)
[2017-08-29] MEDS ORDERED: MECLIZINE HCL 25 MG TAB PO STA (13:31)
--- NOTE | 2017-08-29 13:36 | EMERGENCY ROOM VISIT NOTE ---
History First contact with patient: 13:03 Chief Complaint: DIZZY Stated Complaint: LIGHTHEADED,DIZZY,NAUSEA,CHEST TIGHT,VISION FUZZY Nursing Triage Summary: " i felt like i was going to pass out today" History of Present Illness The patient is a 47 year old female who presents to the Emergency Room with complaints of dizziness and feeling off balance for the past 2 weeks. She states her symptoms have been intermittent, but they got worse today while she was at work, and she was encouraged to be evaluated at the ER. She states she was on an elevator and suddenly felt very dizzy, nauseated, and like she might pass out. She states she thought her blood sugar might be low, and tried to eat something, but the nausea was too bad and she was unable to eat. She denies any vomiting. Patient reports she has also been feeling anxious, more tired than normal lately, and has been having headaches off and on for the past few weeks. 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 PMH significant for Bipolar, anxiety and depression, chronic pain. She does note that she had problems getting her medications because of insurance issues, stopped taking doxepin and decreased her tripletal on her own a few weeks ago, her PCP is aware of this per patient. Her PCP recently started workup for RA due to persistent joint pains. She denies any fevers/chills, blurry or double vision, neck pain or stiffness, chest pain, shortness of breath, abdominal pain, back pain, changes in stool, urinary symptoms, rash. Review of Systems A complete 10 point review of systems was reviewed with the patient with pertinent positives and negatives as per history of present illness. All else were negative. Past Medical/Surgical History Medical Problems: (1) Bipolar disorder (2) Pneumonia (3) S/P hernia repair (4) Tobacco Use Disorder (5) Urinary tract infection Family History Diabetes mellitus FH: cancer Social History Smoking Status: Former Smoker Alcohol Use: occasionally Drug Use: none Marital Status: in relationship Housing Status: lives with significant other Occupation Status: unemployed Current/Historical Medications Scheduled Bupropion HCl (Bupropion HCl Sr), 150 MG PO QAM Escitalopram Oxalate (Escitalopram Oxalate), 10 MG PO DAILY Etodolac (Etodolac), 300 MG PO TIDM Hydroxyzine Pamoate (Vistaril), 100 MG PO HS Multiple Vitamins W/ Minerals (One Daily Complete), 1 TAB PO DAILY Oxcarbazepine (Trileptal), 600 MG PO QPM Zolpidem Tartrate (Zolpidem Tartrate), 5 MG PO HS Scheduled PRN Meclizine Hcl (Meclizine Hcl), 1 TAB PO TID PRN for Dizziness or Vertigo Allergies Reviewed in chart Physical Exam Vital Signs Date Time Temp Pulse Resp B/P (MAP) Pulse Ox O2 Delivery O2 Flow Rate FiO2 08/29/17 16:20 79 20 138/91 98 Room Air 08/29/17 14:58 85 20 160/91 100 Room Air 08/29/17 13:49 72 203/117 74 211/134 79 242/126 08/29/17 12:50 37.0 79 18 165/63 100 Room Air Physical Exam CONSTITUTIONAL: No acute distress, but very anxious and tearful. Dehydrated, disheveled appearance, strong smell of cigarette smoke and body odor. Alert and oriented X 4. HEENT: Normocephalic, atraumatic. Pupils equal, round and reactive to light, EOMI, no nystagmus. TMs normal. Pharynx normal. Dry mucous membranes. NECK: Supple, full active range of motion without discomfort. RESPIRATORY: Clear to auscultation bilaterally with no wheezing, crackles, rhonchi or stridor. Equal expansion bilaterally. CARDIOVASCULAR: Regular rate and rhythm with no murmurs, rubs or gallops. Normal peripheral perfusion. No edema. GASTROINTESTINAL: Soft, nontender, nondistended. Bowel sounds present in all quadrants. MUSCULOSKELETAL: Full range of motion of all joints without discomfort. INTEGUMENTARY: No rash or other significant dermatologic conditions noted. NEUROLOGIC: Cranial nerves II-XII grossly intact. No focal neurologic deficits noted. Hearing intact bilaterally to light snapping of fingers, able to lateralize the sound. Vision grossly intact, able to read signs in the room. No facial droop, no pronator drift. Normal strength, sensation, speech. Normal fingers nose fingers testing. Negative Romberg. Normal gait appreciated. Medical Decision & Procedures ER Provider Diagnostic Interpretation: CHEST 2 VIEWS ROUTINE HISTORY: EVALUATE HEADACHE, HYPERTENSION COMPARISON: Chest 11/14/2015. FINDINGS: The lungs are clear. Cardiac silhouette is normal in size. No pleural effusions. No pneumothorax. IMPRESSION: No acute process. ----- HEAD WITHOUT CONTRAST (CT) CLINICAL HISTORY: 47 years-old Female with Evaluate for hemorrhage or pathology. Acute dizziness with nausea and headache TECHNIQUE: Multiple axial CT images of the head were obtained without contrast. A dose lowering technique was utilized adhering to the principles of ALARA. CT DOSE: 614.27 mGy.cm COMPARISON: CT head 08/29/2015. FINDINGS: No acute intracranial hemorrhage, midline shift, mass, large territorial ischemia or abnormal extra-axial collection. The calvarium is intact. The paranasal sinuses, mastoid air cells, and middle ear cavities are clear. IMPRESSION: No acute intracranial abnormality. Laboratory Results 08/29/17 13:42 Red Blood Count 3.99, Mean Corpuscular Volume 88.2, Mean Corpuscular Hemoglobin 29.8, Mean Corpuscular Hemoglobin Concent 33.8, Mean Platelet Volume 9.9, Neutrophils (%) (Auto) 71.5, Lymphocytes (%) (Auto) 17.9, Monocytes (%) (Auto) 6.1, Eosinophils (%) (Auto) 4.1, Basophils (%) (Auto) 0.1, Neutrophils # (Auto) 5.27, Lymphocytes # (Auto) 1.32, Monocytes # (Auto) 0.45, Eosinophils # (Auto) 0.30, Basophils # (Auto) 0.01 08/29/17 13:42 Test 08/29/17 00:00 08/29/17 13:42 Urine Color YELLOW Urine Appearance CLEAR (CLEAR) Urine pH 8.0 (4.5-7.5) Urine Specific [place] 1.014 (1.000-1.030) Urine Protein NEG (NEG) Urine Glucose (UA) NEG (NEG) Urine Ketones NEG (NEG) Urine Occult Blood NEG (NEG) Urine Nitrite NEG (NEG) Urine Bilirubin NEG (NEG) Urine Urobilinogen NEG (NEG) Urine Leukocyte Esterase NEG (NEG) Urine Test NEG (NEG) White Blood Count 7.37 K/uL (4.8-10.8) Red Blood Count 3.99 M/uL (4.2-5.4) Hemoglobin 11.9 g/dL (12.0-16.0) Hematocrit 35.2 % (37-47) Mean Corpuscular Volume 88.2 fL (80-100) Mean Corpuscular Hemoglobin 29.8 pg (25-34) Mean Corpuscular Hemoglobin Concent 33.8 g/dl (32-36) Platelet Count 246 K/uL (130-400) Mean Platelet Volume 9.9 fL (7.4-10.4) Neutrophils (%) (Auto) 71.5 % Lymphocytes (%) (Auto) 17.9 % Monocytes (%) (Auto) 6.1 % Eosinophils (%) (Auto) 4.1 % Basophils (%) (Auto) 0.1 % Neutrophils # (Auto) 5.27 K/uL (1.4-6.5) Lymphocytes # (Auto) 1.32 K/uL (1.2-3.4) Monocytes # (Auto) 0.45 K/uL (0.11-0.59) Eosinophils # (Auto) 0.30 K/uL (0-0.5) Basophils # (Auto) 0.01 K/uL (0-0.2) RDW Standard Deviation 41.5 fL (36.4-46.3) RDW Coefficient of Variation 12.7 % (11.5-14.5) Immature Granulocyte % (Auto) 0.3 % Immature Granulocyte # (Auto) 0.02 K/uL (0.00-0.02) Carboxyhemoglobin 0.0 % THgb Anion Gap 9.0 mmol/L (3-11) Est Creatinine Clear Calc Drug Dose 90.6 ml/min Estimated GFR () 102.5 Estimated GFR (Non- 88.4 BUN/Creatinine Ratio 16.4 (10-20) Calcium Level 9.3 mg/dl (8.5-10.1) Total Bilirubin 0.5 mg/dl (0.2-1) Aspartate Amino Transf (AST/SGOT) 11 U/L (15-37) Alanine Aminotransferase (ALT/SGPT) 22 U/L (12-78) Alkaline Phosphatase 82 U/L (45-117) Total Protein 7.7 gm/dl (6.4-8.2) Albumin 3.9 gm/dl (3.4-5.0) Globulin 3.8 gm/dl (2.5-4.0) Albumin/Globulin Ratio 1.0 (0.9-2) Human Chorionic Gonadotropin, Qual NEG (NEG) Lyme Disease IgG Antibody NEG (NEG) Lyme Disease IgM Antibody NEG (NEG) Medications Administered Medications (Trade) Dose Ordered Sig/Nicolasa Route Start Time Stop Time Status Last Admin Dose Admin Sodium Chloride 1,000 ml @ 999 mls/hr Q1H1M STAT IV 08/29/17 13:20 08/29/17 14:20 DC 08/29/17 14:03 999 MLS/HR Meclizine HCl (Antivert Tab) 25 mg NOW STAT PO 08/29/17 13:31 08/29/17 13:32 DC 08/29/17 14:02 25 MG ECG Indication: other (dizziness) Rate (beats per minute): 70 Rhythm: normal sinus Findings: PVC (occasional), no acute ischemic change Change: no significant change (compared to EKG from 02/25/2017) Medical Decision CC: Patient presenting with complaint of dizziness/feeling off balance Interpretation of Labs: No leukocytosis, mild anemia appears similar to baseline , no significant electrolyte abnormality, normal renal function, normal liver enzymes, negative carboxyhemoglobin level. UA negative. Lyme testing negative. Differential Diagnosis: Includes, but not limited to migraine, tension headache , vertigo, BPPV, dehydration, likely abnormality, Lyme disease, carbon monoxide poisoning, intracranial hemorrhage, mass or mass effect, dysrhythmia, anxiety, among others. Medication Reconciliation: I attest that I have personally reviewed the patient' s current medication list. Vital signs review: I reviewed the patient's vital signs and interpret them as follows: T: Afebrile; BP: Hypertensive; HR: WNL; RR: WNL; Pulse Ox: WNL on room air. Blood pressure screening: The patient was found to have an elevated blood pressure and was referred to their primary doctor for recheck and further treatment. Summary: Patient was evaluated at bedside, history and physical exam performed. Patient is alert and oriented, in no acute distress, but does seem quite anxious on exam and becomes tearful. She is a poor historian and is quite tangential but able to be redirected and focused. She does admit that her anxiety has been worse than usual, but she denies any SI /HI. Neurologic exam is intact with no focal findings. No nystagmus noted, negative Romberg. Patient repeatedly voicing concern for a brain tumor, noting that her mother recently and had cancer. I discussed risks versus benefits of CT imaging with the patient, using shared decision making, she would like to do a CT of the brain today. Patient does appear to be moderately dehydrated with dry mucous membranes and dry skin. She is noted to be extremely hypertensive on orthostatic vital sign testing, however this was done immediately after I examined and spoke with the patient and she was very anxious at that time. Orders were placed at bedside for labs including Lyme testing and carboxyhemoglobin level, UA and urine , IV fluids for hydration, EKG and chest x-ray to evaluate for hypertension, noncontrast CT of the head. Patient discussed with Dr. Marrero, who agrees with my assessment and plan. Labs reviewed as above, no significant abnormalities. Negative Lyme. Negative carboxyhemoglobin. Chest x-ray is unremarkable. EKG shows normal sinus rhythm, occasional PVC noted, no ischemic changes. Head CT shows no acute abnormalities. I spoke on the phone at 3:20 PM with Steph Phelps PA-C, who provides primary care to the patient. I did discuss the patient's elevated blood pressure with her, she states on countless clinic visits the patient has had a normal blood pressure, and she is concerned for the potential of bottoming out the blood pressure if we place her on antihypertensives today. Patient reassessed multiple times throughout ED stay, she does note that her dizziness is much improved and her headache is gone after receiving IV fluids and meclizine. She has been noted to ambulate to the bathroom without difficulty or balance problems. Rx for meclizine sent to pharmacy for the patient at her request. On reassessment of the patient's blood pressure after I discussed negative results on workup today, she was noted to have a much improved blood pressure of 138/91. I discussed all results with the patient and the plan for discharge home, with the plan to follow closely with her PCP, specifically to recheck her blood pressure and to discuss ongoing management of her medications. I did also discuss strict return precautions with the patient should her symptoms return or worsen, the patient verbalized understanding. The patient was discharged home in stable condition and ambulatory. Head Trauma GCS Score: 15 Medication Reconcilliation Current Medication List: was personally reviewed by me Blood Pressure Screening Patient's blood pressure: Elevated blood pressure Blood pressure disposition: Referred to PCP Impression Primary Impression: Dizziness Additional Impressions: Transient hypertension Acute anxiety Departure Information Dispostion Home / Self-Care Condition GOOD Prescriptions Meclizine Hcl (MECLIZINE HCL) 25 Mg Tab 1 TAB PO TID Y for Dizziness or Vertigo, #10 TAB Prov: Fabiola Suarez CRNP 08/29/17 Referrals Asia Roger D.O. (PCP) Patient Instructions ED Dizziness [facility], ED Hypertension Poss, ED Stress React, [facility] Additional Instructions You have been treated in the Emergency Department today for dizziness and dehydration. Laboratory results and imaging studies have ruled out any emergent reasons for further evaluation or admission. Your head CT today was normal. You have been prescribed meclizine, to be taken as needed for symptoms of dizziness or vertigo. Take as prescribed. It is important that you maintain adequate hydration with oral fluids. Some suggestions include the following: - Water is the IDEAL replacement for lost fluids. You should initially sip at the water to help facilitate increased intestinal absorption rate and to decrease the possibility of nausea/vomiting. - Carbohydrate/Electrolyte-Containing Drinks (i.e. Gatorade, Powerade, Pedialyte). All of these are good choices, but it is important to remember that all of these drinks contain a high concentration of sugar. - Popsicles, ice chips, and fruit juices are all other options. - My FAVORITE dehydration remedy is to mix a 1:1 solution of bottled Gatorade with bottled water. This dilution allows for a palatable flavor with added benefit of a reduction in the amount of sugar consumption. It is very important that you follow up with your primary care provider within the next few days to continue coordinating your care and managing her medications. You should have your blood pressure rechecked at your next visit. Return to the Emergency Department if your current symptoms worsen despite treatment course outlined above, or if you develop any of the following symptoms : Severe headache, chest pain or shortness of breath, severe dizziness or passing out, weakness, palpitations, confusion, decreased urine output, or any other concerns. Work Instructions Return To Work: 2 days Problem Qualifiers
[2017-08-29 14:09] LABS: BASO % 0.1 %; BASO ABS # 0.01 K/uL (0-0.2); COMPLETE YES; EOS % 4.1 %; HEMATOCRIT 35.2 % (37-47); IG% 0.3 %; LYMPH % 17.9 %; LYMPH ABS # 1.32 K/uL (1.2-3.4); MEAN CELL VOLUME 88.2 fL (80-100); MEAN CORPUSCULAR HEMOGLOBIN 29.8 pg (25-34); MEAN CORPUSCULAR HGB CONC 33.8 g/dl (32-36); MEAN PLATELET VOLUME 9.9 fL (7.4-10.4); MONO % 6.1 %; NEUT % 71.5 %; PLATELET COUNT 246 K/uL (130-400); RED BLOOD COUNT 3.99 M/uL (4.2-5.4); WHITE BLOOD COUNT 7.37 K/uL (4.8-10.8)
[2017-08-29] MEDS ORDERED: ETOD300C20 PO (14:12)
[2017-08-29 14:31] LABS: BUN/CREATININE RATIO 16.4 (10-20); CALCIUM 9.3 mg/dl (8.5-10.1); CREATININE 0.8 mg/dl (0.60-1.20); POTASSIUM 3.8 mmol/L (3.5-5.1)
--- NOTE | 2017-08-29 14:34 | DIAGNOSTIC IMAGING REPORT ---
CHEST 2 VIEWS ROUTINE HISTORY: EVALUATE HEADACHE COMPARISON: Chest 11/14/2015. FINDINGS: The lungs are clear. Cardiac silhouette is normal in size. No pleural effusions. No pneumothorax. IMPRESSION: No acute process. Electronically signed by: Taye Mccoy M.D. 08/29/2017 2:33 PM Dictated Date/Time: 08/29/2017 2:22 PM
[2017-08-29 14:49] LABS: PREG INTERNAL NEGATIVE QC NEG CLEAR BACKGROUND; PREG INTERNAL POSITIVE QC POS CONTROL LINE
--- NOTE | 2017-08-29 14:54 | DIAGNOSTIC IMAGING REPORT ---
HEAD WITHOUT CONTRAST (CT) CLINICAL HISTORY: 47 years-old Female with Evaluate for hemorrhage or pathology. Acute dizziness with nausea and headache TECHNIQUE: Multiple axial CT images of the head were obtained without contrast. A dose lowering technique was utilized adhering to the principles of ALARA. CT DOSE: 614.27 mGy.cm COMPARISON: CT head 08/29/2015. FINDINGS: No acute intracranial hemorrhage, midline shift, mass, large territorial ischemia or abnormal extra-axial collection. The calvarium is intact. The paranasal sinuses, mastoid air cells, and middle ear cavities are clear. IMPRESSION: No acute intracranial abnormality. The above report was generated using voice recognition software. It may contain grammatical, syntax or spelling errors. Electronically signed by: Gab Rao M.D. 08/29/2017 2:53 PM Dictated Date/Time: 08/29/2017 2:52 PM
[2017-08-29 15:04] LABS: URINE APPEARANCE CLEAR (CLEAR); URINE BILIRUBIN NEG (NEG); URINE COLOR YELLOW; URINE NITRITE NEG (NEG); URINE SPECIFIC GRAVITY 1.014 (1.000-1.030); UROBILINOGEN NEG (NEG)
[2017-08-29 15:07] LABS: MANUAL MICROSCOPIC REQUIRED? NO; REVIEW REQ? NO
[2017-08-29 15:26] LABS: LYME DISEASE AB IGG NEG (NEG); LYME DISEASE AB IGM NEG (NEG)
[2017-08-29 16:20] VITALS: BP 138/91; PULSE 79; O2SAT 98
[2017-08-29] MEDS ORDERED: MECL1TAB42 PO (16:27)
== END 2017-08-29 16:36 | disposition home or self-care (01) ==
LOC: C.EDB 12:49 → C.EDA 16:36
DX: R42 Dizziness and giddiness (principal); R03.0 Elevated blood-pressure reading, without diagnosis of hypertension; F41.9 Anxiety disorder, unspecified; F31.9 Bipolar disorder, unspecified; F32.9 Major depressive disorder, single episode, unspecified; G89.29 Other chronic pain; Z87.891 Personal history of nicotine dependence; Z83.3 Family history of diabetes mellitus